=== PATIENT | female | born 1980 | race Caucasian/White ===

== ENCOUNTER 2022-08-27 14:24 | Emergency (ER) | payer BC, SELFPAY ==
[2022-08-27 14:44] VITALS: BP 131/81; PULSE 84; RESP 16; TEMP 36.3; O2SAT 100
--- NOTE | 2022-08-27 14:48 | ED.EAR ---
HPI - Ear Problem General Chief complaint: Ear Stated complaint: headache,bilateral ear pain Source: patient Mode of arrival: ambulatory Limitations: no limitations History of Present Illness HPI Narrative: 42 y/o female presented for c/o sinus headache for 3 days and left ear pain/pressure for 2 days. Taking Tylenol for symptoms. Endorses history of 'sinus issues.' Does not routinely take antihistamine or nasal spray. Denies sinus drainage, sore throat,, sob, wheezing, n/v/d/f/c. Complaint: ear pain Related Data Home Medications Medication Instructions Recorded Confirmed norgestrel 0.3 mg-ethinyl 1 tablet PO DAILY 08/27/22 08/27/22 estradiol 30 mcg tablet Allergies Allergy/AdvReac Type Severity Reaction Status Date / Time No Known Allergies Allergy Verified 08/27/22 14:34 Review of Systems Review of Systems: CONSTITUTIONAL: Denies malaise, chills, or fever. EYES: Denies visual changes, redness, or discharge. ENT: Denies rhinorrhea, congestion, and sore throat. Reports ear pain CARDIOVASCULAR: Denies chest pain, palpitations, or edema. RESPIRATORY: Denies cough or dyspnea. GASTROINTESTINAL: Denies abdominal pain, nausea, vomiting, diarrhea SKIN: Denies rash or itching. MUSCULOSKELETAL: Denies myalgia. All systems reviewed & are unremarkable except as noted in HPI and below PMFSH Comments At time of signature, agree with nursing past medical, surgical, social and family history. There is no relevant family history pertinent to the presenting complaint Exam Narrative: GENERAL: Well-appearing EYES: conjunctivae clear ENT: Nares clear. Mucous membranes moist. TMs pearly brothers with dull light reflex bilaterally; no tragal tenderness. Oropharynx not erythematous without lesions. NECK: Supple. No lymphadenopathy CHEST: Clear to auscultation, breath sounds equal. HEART: Regular rate and rhythm. No murmur heard. SKIN: Warm, dry, no rash. NEURO: Alert and oriented x3. Course Course Emergency Course: Patient is aware of diagnosis, understands and agrees to treatment plan. Anticipatory guidance given. Patient agrees to follow-up as directed and is aware of reasons to seek care at the emergency department. Portions of this record may have been created with voice recognition software Level of Care: Express Care Visit Vital Signs Vital signs: Vital Signs Temperature 97.4 F L 08/27/22 14:44 Pulse Rate 84 08/27/22 14:44 Respiratory Rate 16 08/27/22 14:44 Blood Pressure 131/81 08/27/22 14:44 Pulse Oximetry 100 08/27/22 14:44 Oxygen Delivery Room Air 08/27/22 14:44 Temperature 97.4 F L 08/27/22 14:44 Pulse Rate 84 08/27/22 14:44 Respiratory Rate 16 08/27/22 14:44 Blood Pressure 131/81 08/27/22 14:44 Pulse Oximetry 100 08/27/22 14:44 Oxygen Delivery Room Air 08/27/22 14:44 Reviewed Medical Decision Making MDM Narrative Medical decision making narrative: Advised supportive measures and signs/symptoms to go to the ER. Patient is appropriate for outpatient treatment and follow-up. Differential Diagnosis Differential Diagnosis: Coronavirus, strep pharyngitis, allergic rhinitis, upper respiratory tract infection, sinusitis, rhinosinusitis, nasopharyngitis, viral pharyngitis, otitis media, otitis externa, eustachian tube dysfunction, foreign body, cerumen impaction. Vital Signs Vital Signs: Vital Signs Temperature 97.4 F L 08/27/22 14:44 Pulse Rate 84 08/27/22 14:44 Respiratory Rate 16 08/27/22 14:44 Blood Pressure 131/81 08/27/22 14:44 Pulse Oximetry 100 08/27/22 14:44 Oxygen Delivery Room Air 08/27/22 14:44 Temperature 97.4 F L 08/27/22 14:44 Pulse Rate 84 08/27/22 14:44 Respiratory Rate 16 08/27/22 14:44 Blood Pressure 131/81 08/27/22 14:44 Pulse Oximetry 100 08/27/22 14:44 Oxygen Delivery Room Air 08/27/22 14:44 Discharge Plan Discharge Clinical Impression: Otalgia of left ear Patient Disposition:
== END 2022-08-27 15:00 | disposition home or self-care (01) ==
PROVIDERS: Emergency Provider Nurse Practitioner Family
DX: H92.02 Otalgia, left ear (principal); Z86.16 Personal history of COVID-19
CPT/HCPCS: 99213; G0463

== ENCOUNTER 2024-06-12 14:29 | Emergency (ER) | payer OTHER, SELFPAY ==
--- NOTE | 2024-06-12 14:38 | ED.HA ---
HPI - Headache General Chief Complaint: Upper Respiratory Infection Stated Complaint: headache Source: patient Mode of arrival: ambulatory Limitations: no limitations History of Present Illness HPI Narrative: 43 y/o female presented for c/o sinus headache behind the right eye x5 days. Started with body aches and subjective fever and chills today. Endorses a history of sinus headaches. Taking Tylenol and ibuprofen, last dose 1 hour river captain. Denies any other symptoms. Related Data Allergies Allergy/AdvReac Type Severity Reaction Status Date / Time No Known Allergies Allergy Verified 06/12/24 14:40 Review of Systems Review of Systems: CONSTITUTIONAL: Denies body aches, fever, chills, or sweats. EYES: Denies visual changes, redness, or discharge. ENT: Reports sinus pain Denies rhinorrhea, congestion, sore throat, or otalgia. CARDIOVASCULAR: Denies chest pain, palpitations, or edema. RESPIRATORY: Denies cough or dyspnea. SKIN: Denies rash MUSCULOSKELETAL: Denies back pain, joint pain, or myalgia. NEUROLOGIC: Reports sinus headache All systems reviewed & are unremarkable except as noted in HPI and below PMFSH Comments At time of signature, I have reviewed and agree with nursing past medical, surgical, social and family history unless otherwise noted. Please see nursing chart for further information. There is no relevant family history pertinent to the presenting complaint Exam Narrative: GENERAL: Well-appearing HEAD: Normocephalic, atraumatic. EYES: EOMI. No redness or drainage. Conjunctivae normal. ENT: Mucous membranes pink and moist. No rhinorrhea. TMs normal bilaterally. Throat normal. Uvula midline. NECK: Normal AROM. CHEST: No respiratory distress. Clear to auscultation. HEART: Regular rate and rhythm. ABDOMEN: Soft, nontender, nondistended, normal active bowel sounds. SKIN: Warm, dry, no rash. Capillary refill normal. Normal skin turgor. NEURO: No focal deficits. Alert and oriented x3. Gait steady. Course Course Emergency Course: Patient is aware of diagnosis, understands and agrees to treatment plan. Anticipatory guidance given. Patient agrees to follow-up as directed and is aware of reasons to seek care at the emergency department. Portions of this record may have been created with voice recognition software Level of Care: Express Care Visit Vital Signs Vital signs: Vital Signs Temperature 97.7 F 06/12/24 14:40 Pulse Rate 108 H 06/12/24 14:40 Respiratory Rate 16 06/12/24 14:40 Blood Pressure 118/73 06/12/24 14:40 Pulse Oximetry 100 06/12/24 14:40 Oxygen Delivery Room Air 06/12/24 14:40 Temperature 97.7 F 06/12/24 14:40 Pulse Rate 108 H 06/12/24 14:40 Respiratory Rate 16 06/12/24 14:40 Blood Pressure 118/73 06/12/24 14:40 Pulse Oximetry 100 06/12/24 14:40 Oxygen Delivery Room Air 06/12/24 14:40 MDM - Headache MDM Narrative Medical decision making narrative: Discussed physical exam findings, negative flu and COVID. Pt took Tylenol river captain, likely reduced the fever. v/u. Advised supportive measures and signs/symptoms to go to the ER. Pt is appropriate for outpt treatment and f/u. Differential Diagnosis Differential diagnosis: Likely migraine, tension headache, subarachnoid hemorrhage, headache and sinusitis Lab Data Labs: Lab Results 06/12/24 06/12/24 Range/Units 15:33 15:34 POC Influenza A Ag Negative (Negative) POC Influenza B Ag Negative (Negative) POC SARS CoV-2 Ag Negative (Negative) Discharge Plan Discharge Clinical Impression: Sinus headache Patient Disposition: Home, Self-Care Condition: Stable Instructions: Antibiotic Form, Acute Headache (ED) Additional Instructions: Your rapid covid test was negative today. It may be too early to detect the virus, therefore we recommend retesting at home in 1-2 days Continue to follow general precautions: frequent handwashing, wear a mask, isolate/social distance, and avoid crowds if you have a fever. You must be fever free for 24 hours without the use of fever reducing medication (Tylenol/ibuprofen) before returning to work/school/crowds. Rest in a cool dark room Avoid screens (computers, tablets, phones, television) Drink plenty fluids. Tylenol 1000mg every 8 hours as needed Follow up with your primary care provider and/or ENT in 1 week Go to the ER for worsening symptoms or concerns Prescriptions: New prednisone 20 mg tablet 40 mg PO DAILY 4 Days Qty: 8 0RF Follow-up/Referrals: PHYSICIAN,ALTERATION WORKROOM SUPERVISOR [Primary Care Provider] - Stand Alone Forms: Work/School Release IP Time of Disposition: 15:46
[2024-06-12 14:40] VITALS: BP 118/73; PULSE 108; RESP 16; TEMP 36.5; O2SAT 100
[2024-06-12 15:35] LABS: EDINFLUASCREEN Negative (Negative); EDINFLUBSCREEN Negative (Negative)
[2024-06-12 15:36] LABS: EDCOVIDSCREEN Negative (Negative)
== END 2024-06-12 15:51 | disposition home or self-care (01) ==
PROVIDERS: Emergency Provider Nurse Practitioner Family
DX: R51.9 Headache, unspecified (principal); Z20.822 Contact with and (suspected) exposure to COVID-19; R01.1 Cardiac murmur, unspecified; I34.1 Nonrheumatic mitral (valve) prolapse; Z86.16 Personal history of COVID-19
CPT/HCPCS: 87426; 87804; 99213; G0463

== ENCOUNTER 2024-08-05 13:51 | Emergency (ER) | payer OTHER, SELFPAY ==
[2024-08-05 14:34] VITALS: BP 141/80; PULSE 86; RESP 16; TEMP 36.5; O2SAT 100
--- NOTE | 2024-08-05 15:11 | ED_ITS ---
HPI - Ear Problem General Chief complaint: Ear Stated complaint: RT Ear Pain Time Seen by Provider: 08/05/24 15:12 Source: patient Mode of arrival: ambulatory Limitations: no limitations History of Present Illness HPI Narrative: 43-year-old female presented for complaint of right ear pain since last night, as well as 2 weeks of nasal congestion and sinus pressure. She has been taking cough and cold medication without relief. Denies shortness of breath, wheezing, nausea vomiting, diarrhea, fevers or chills. Reports a history of sinus headaches. MD Complaint: ear pain Related Data Allergies Allergy/AdvReac Type Severity Reaction Status Date / Time No Known Allergies Allergy Verified 08/05/24 14:57 Review of Systems Review of Systems: CONSTITUTIONAL: Denies malaise, chills, or fever. EYES: Denies visual changes, redness, or discharge. ENT: Reports ear pain rhinorrhea, congestion, sinus pain CARDIOVASCULAR: Denies chest pain, palpitations, or edema. RESPIRATORY: Denies cough or dyspnea. MUSCULOSKELETAL: Denies myalgia. NEUROLOGIC: Denies headache. All systems reviewed & are unremarkable except as noted in HPI and below PMFSH Comments At time of signature, agree with nursing past medical, surgical, social and family history. There is no relevant family history pertinent to the presenting complaint Exam Narrative: GENERAL: Well-appearing EYES: PERRLA, conjunctivae clear ENT: Nares clear. Mucous membranes moist. TMs pearly brothers with dull light reflex bilaterally; no tragal tenderness. Oropharynx not erythematous without lesions. Tonsils not enlarged and without exudate, no drooling, no hoarseness, no trismus, uvula midline. NECK: Supple. No lymphadenopathy CHEST: Clear to auscultation, breath sounds equal. No wheezing, rhonchi, rales, or stridor. No respiratory distress, speaks in full sentences. HEART: Regular rate and rhythm. No murmur heard. SKIN: Warm, dry NEURO: Alert and oriented x3. PSYCH: Normal mood and affect Course Course Emergency Course: Patient is aware of diagnosis, understands and agrees to treatment plan. Anticipatory guidance given. Patient agrees to follow-up as directed and is aware of reasons to seek care at the emergency department. Portions of this record may have been created with voice recognition software Level of Care: Express Care Visit Vital Signs Vital signs: Vital Signs Temperature 97.7 F 08/05/24 14:34 Pulse Rate 86 08/05/24 14:34 Respiratory Rate 16 08/05/24 14:34 Blood Pressure 141/80 H 08/05/24 14:34 Pulse Oximetry 100 08/05/24 14:34 Oxygen Delivery Room Air 08/05/24 14:34 Temperature 97.7 F 08/05/24 14:34 Pulse Rate 86 08/05/24 14:34 Respiratory Rate 16 08/05/24 14:34 Blood Pressure 141/80 H 08/05/24 14:34 Pulse Oximetry 100 08/05/24 14:34 Oxygen Delivery Room Air 08/05/24 14:34 Reviewed Medical Decision Making MDM Narrative Medical decision making narrative: Discussed physical exam findings consistent with sinusitis. Advised supportive measures and signs/symptoms to go to the ER. Patient is appropriate for outpatient treatment and follow-up. Differential Diagnosis Differential Diagnosis: Coronavirus, strep pharyngitis, allergic rhinitis, upper respiratory tract infection, sinusitis, rhinosinusitis, nasopharyngitis, viral pharyngitis, otitis media, otitis externa, eustachian tube dysfunction, foreign body, cerumen impaction. Vital Signs Vital Signs: Vital Signs Temperature 97.7 F 08/05/24 14:34 Pulse Rate 86 08/05/24 14:34 Respiratory Rate 16 08/05/24 14:34 Blood Pressure 141/80 H 08/05/24 14:34 Pulse Oximetry 100 08/05/24 14:34 Oxygen Delivery Room Air 08/05/24 14:34 Temperature 97.7 F 08/05/24 14:34 Pulse Rate 86 08/05/24 14:34 Respiratory Rate 16 08/05/24 14:34 Blood Pressure 141/80 H 08/05/24 14:34 Pulse Oximetry 100 08/05/24 14:34 Oxygen Delivery Room Air 08/05/24 14:34 Discharge Plan Discharge Clinical Impression: Sinusitis Patient Disposition: Home, Self-Care Condition: Stable Instructions: Antibiotic Form, Rhinosinusitis (ED) Additional Instructions: Take antibiotic as directed Recommendations: Flonase spray and Zyrtec (or Claritin/Nan) over the counter Cough syrup may cause drowsiness; avoid driving or take it at night time. Tylenol 1000mg every 8 hours as needed for pain Symptomatic treatment includes: rest, fluids, and increase humidity of the air at home. Follow up with your primary care provider in 1 week. Go to the ER for worsening symptoms or concerns. Patient Language: Croatian Prescriptions: New amoxicillin-pot clavulanate 875-125 mg tablet 1 tablet PO Q12H 7 Days Qty: 14 0RF Follow-up/Referrals: PHYSICIAN,TESTING PROJECTS ADMINISTRATOR [Primary Care Provider] - Stand Alone Forms: Work/School Release IP Time of Disposition: 15:17
== END 2024-08-05 15:18 | disposition home or self-care (01) ==
PROVIDERS: Emergency Provider Nurse Practitioner Family
DX: J32.9 Chronic sinusitis, unspecified (principal)
CPT/HCPCS: 99213; G0463